=== PATIENT | male | born 1940 | race Caucasian/White ===

== ENCOUNTER 2018-08-26 10:46 | Emergency (ER) | payer MEDICARE, OTHER ==
[~2018-08-26] VITALS: Ht 162.6 cm; Wt 70.9 kg
[~2018-08-26 10:46] MED LIST: ALLO300T2 PO; AMIO200T PO; ASPI-1158; DEXL60CA3 PO; GLIM2TAB2 PO; HYDR-4001; LEVO150T8 PO; METF-415 PO; NITR0.4T PO; ONDA4TAB21 PO; POTA10TA11 PO; SIMV40TA5 PO
[2018-08-26 11:38] VITALS: BP 125/45
[2018-08-26] MEDS ORDERED: AMOXICILLIN/POTASSIUM CLAVULANATE 875/125MG TAB PO ONE (12:30)
== END 2018-08-26 16:11 | disposition home or self-care (01) ==
LOC: ER 10:46
DX: H66.92 Otitis media, unspecified, left ear (principal); E11.9 Type 2 diabetes mellitus without complications; I10 Essential (primary) hypertension; F17.200 Nicotine dependence, unspecified, uncomplicated; Z95.0 Presence of cardiac pacemaker; Z79.82 Long term (current) use of aspirin; Z79.899 Other long term (current) drug therapy
CPT/HCPCS: 99283

== ENCOUNTER 2020-04-02 09:06 | Emergency (ER) | payer OTHER, MEDICAID ==
[~2020-04-02] VITALS: Ht 165.1 cm; Wt 70.0 kg
[~2020-04-02 09:06] MED LIST changes: -GLIM2TAB2 PO; +GLIM2TAB30 PO; +SIMV-46 PO; -SIMV40TA5 PO
[2020-04-02 09:49] LABS: HEMATOCRIT. 39.9 % (42.0-52.0); HEMOGLOBIN. 13.6 g/dL (14.0-18.0); MEAN CORPUSCULAR HEMOGLOBIN 30.5 pg (28.0-32.0); MEAN CORPUSCULAR VOLUME 89.7 fL (80.0-94.0); MEAN PLATELET VOLUME 7.6 fl (7.4-10.4); PLATELET 227 x1000/uL (130-400); RED BLOOD CELL COUNT 4.45 mill/uL (4.7-6.1); RED CELL DISTRIBUTION WIDTH 13.6 % (11.6-14.6)
[2020-04-02 09:58] LABS: CHLORIDE 107 mEq/L (98-107)
[2020-04-02 09:59] LABS: INR 1.1; PARTIAL THROMBOPLASTIN TIME 36.8 sec (23.4-31.0); PROTHROMBIN TIME 11.4 sec (9.6-11.0)
[2020-04-02 12:30] VITALS: BP 155/62
[2020-04-02 12:58] LABS: PLATELET ESTIMATE NORMAL
== END 2020-04-02 14:22 | disposition home or self-care (01) ==
LOC: ER 09:06 → SUPCPDRO 12:06 → ER 14:22 → CANBEDREQ 17:07
DX: D69.2 Other nonthrombocytopenic purpura (principal); I25.10 Atherosclerotic heart disease of native coronary artery without angina pectoris; E11.9 Type 2 diabetes mellitus without complications; I10 Essential (primary) hypertension; M10.9 Gout, unspecified; D68.59 Other primary thrombophilia; E03.9 Hypothyroidism, unspecified; I48.0 Paroxysmal atrial fibrillation; Z79.4 Long term (current) use of insulin; Z79.01 Long term (current) use of anticoagulants
CPT/HCPCS: 36415; 71045; 80053; 84484; 84550; 85025; 86850; 86900; 93005; 99285